=== PATIENT | female | born 1945 | race Caucasian/White ===

== ENCOUNTER → 2022-04-23 09:52 | Outpatient (BNVA) | payer MEDICARE, OTHER, SELFPAY | PROVIDERS: Family Provider Family Medicine; PCP Family Medicine; Visit Provider Podiatrist Foot & Ankle Surgery | DX: M77.42 Metatarsalgia, left foot (principal); M25.872 Other specified joint disorders, left ankle and foot; M20.22 Hallux rigidus, left foot | CPT/HCPCS: 73630; 99204 ==